=== PATIENT | female | born 1985 | race Caucasian/White ===

== ENCOUNTER 2016-09-10 15:55 | Emergency (ER) | payer SELFPAY ==
[~2016-09-10] VITALS: Ht 160 cm; Wt 88.7 kg
[2016-09-10 16:55] VITALS: BP 115/92
== END 2016-09-10 16:56 ==
LOC: EME 15:55
DX: F41.0 Panic disorder [episodic paroxysmal anxiety] (principal); Z72.0 Tobacco use; Z71.6 Tobacco abuse counseling
CPT/HCPCS: 84702; 90832; 99281; 99285